=== PATIENT | female | born 1995 ===

== ENCOUNTER 2018-06-06 17:26 | Emergency (ER) | payer MEDICAID ==
[~2018-06-06] VITALS: Ht 170.2 cm; Wt 63.6 kg
[2018-06-06 17:31] VITALS: BP 125/79
[2018-06-06] MEDS ORDERED: HYDR-4353 PO (18:08)
--- NOTE | 2018-06-06 18:20 | NUR ---
SOON PT WAS PLACED IN ROOM SHE WANTED TO LEAVE. PT WITH MULTIPLE ABRASSIONS, CUTS AND BRUSIES. PT STATES SHE JUST WANTS CRUTCHES. PT ENCOURAGED BY MYSELF AND ZEB TO STAY AND HAVE HER RIGHT FOOT XRAY. PT NOW IS REFUSING TO STAY AND GET XRAY AND WOUNDS CLEANED. PT HAS TAKEN IT UPON HERSELF TO GET INTO THE DRAWERS IN THE ROOM AND COVERED HER WOUNDS WITH GAUZE AND STATES SHE IS CLEANING THEM THE ALCOHOL PADS. PT AGAIN REFUSING TO ALLOW US TO HELP. PT WILL BE DCD WITH PAPERWORK BUT NOT THE [facility] PT GIVEN CRUTCHES.
== END 2018-06-06 18:50 | disposition home or self-care (01) ==
LOC: ER 17:26
DX: S80.01XA Contusion of right knee, initial encounter (principal); S90.01XA Contusion of right ankle, initial encounter; S90.415A Abrasion, left lesser toe(s), initial encounter; S50.312A Abrasion of left elbow, initial encounter; M25.551 Pain in right hip; Z79.899 Other long term (current) drug therapy; V19.9XXA Pedal cyclist (driver) (passenger) injured in unspecified traffic accident, initial encounter; Y93.89 Activity, other specified; Y92.410 Unspecified street and highway as the place of occurrence of the external cause; Y99.8 Other external cause status
CPT/HCPCS: 99283